=== PATIENT | female | born 1960 | race African-American/Black ===

== ENCOUNTER 2017-02-10 12:38 | Inpatient (IN) | payer MEDICAID ==
[~2017-02-10] VITALS: Ht 165.1 cm; Wt 74.8 kg
[2017-02-10] MEDS ORDERED: LASIX40 MG ORAL (12:43)
[2017-02-10] MEDS ORDERED: CARVEDILOL12.5 MG ORAL (12:43)
[2017-02-10] MEDS ORDERED: ENTRESTO 24 MG1 EACH PO (12:43)
[2017-02-10] MEDS ORDERED: ATORVASTATIN CA20 MG ORAL (12:43)
[2017-02-10 12:48] VITALS: BP 157/90
[2017-02-10 13:10] LABS: BASOPHILS % (AUTO) 0.9 % (0.0-2.0); EOSINOPHILS % (AUTO) 1.9 % (0.0-3.0); MEAN CORPUSCULAR HGB CONC 32.5 G/DL (32.0-36.0); MEAN CORPUSCULAR VOLUME 92 FL (80-99); MONOCYTES % (AUTO) 3.7 % (1.0-10.0); NEUTROPHILS % (AUTO) 71.6 % (45.0-75.0); PLATELET COUNT 186 K/UL (150-450); RED BLOOD COUNT 4.91 M/UL (4.20-5.40); RED CELL DISTRIBUTION WIDTH 12.9 % (11.6-14.8); WHITE BLOOD COUNT 6.6 K/UL (4.8-10.8)
[2017-02-10 13:23] LABS: CALCIUM 9.5 mg/dL (8.6-10.2); CREATININE 1.1 mg/dL (0.5-0.9); GLOMERULAR FILTRATION RATE 51.2 mL/min (>60); POTASSIUM 4.1 mEQ/L (3.4-4.9); TOTAL PROTEIN 7.7 g/dL (6.6-8.7)
[2017-02-10 13:24] LABS: TROPONIN I < 0.30 ng/mL (<=0.30)
--- NOTE | 2017-02-10 13:57 | Diagnostic Imaging Report ---
Indication: PAIN Technique: One view of the chest Comparison: none Findings: The heart is enlarged. Lungs and pleural spaces are clear Impression: Cardiomegaly. No acute process
[2017-02-10 14:28] LABS: APPEARANCE,URINE SLIGHTLY CLOUDY; KETONES,URINE 2+ (NEGATIVE); LEUKOCYTE ESTERASE ,URINE NEGATIVE (NEGATIVE); NITRITE,URINE NEGATIVE (NEGATIVE); PH,URINE 6.5 (4.5-8.0); PROTEIN,URINE 1+ (NEGATIVE); UROBILINOGEN,URINE NORMAL MG/DL (0.0-1.0)
[2017-02-10 14:41] LABS: BACTERIA,URINE OCCASIONAL /HPF; RBC,URINE 0-2 /HPF (0 - 2); SQUAMOUS EPITHELIAL CELL,UR FEW /LPF (NONE/OCC); WBC,URINE 0-2 /HPF (0 - 2)
[2017-02-10 14:44] VITALS: BP 112/69
[2017-02-10] MEDS ORDERED: Miralax 17gm pkt ORAL PRN (15:15)
[2017-02-10] MEDS ORDERED: Diltiazem 25mg/5ml IV PRN (15:15)
[2017-02-10] MEDS ORDERED: Enalaprilat 2.5mg/2ml Inj IV PRN (15:15)
[2017-02-10] MEDS ORDERED: DuoNeb 0.5-3(2.5)mg/3ml neb HHN PRN (15:15)
[2017-02-10] MEDS ORDERED: Ketorolac 30mg Inj IV PRN (15:15)
[2017-02-10] MEDS ORDERED: Morphine Sulfate 2mg/ml Inj IVP PRN (15:15)
--- NOTE | 2017-02-10 15:15 | Emergency Room Report ---
History of Present Illness General Chief Complaint: Dizziness Source: Patient Present Illness HPI 56-year-old female with history of with pmhx of HTN p/w lightheadedness/sob, started while driving. Patient states that she felt extremely warm, and felt short of breath Denies fever, chills, cough, abd pain. Denies trauma. Last stress test was 1 year ago which was negative. Patient has never had a stress test. Patient has never had a cardiac catheterization. Denies smoking, no family history of cardiac disease at a young age. Denies any history of PE DVT, denies any OCP use, malignancy, recent surgeries or immobilization Allergies: Coded Allergies: PENICILLINS (Verified Allergy, Unknown, 02/10/17) Patient History Past Medical History: see triage record Past Surgical History: none Pertinent Family History: none Reviewed Nursing Documentation: PMH: Agreed, PSxH: Agreed Nursing Documentation-PMH Hx Cardiac Problems: Yes Hx Hypertension: Yes Review of Systems All Other Systems: negative except mentioned in HPI Physical Exam Vital Signs Date Time Temp Pulse Resp B/P (MAP) Pulse Ox O2 Delivery O2 Flow Rate FiO2 02/10/17 12:33 97.9 94 16 178/84 98 Room Air Sp02 EP Interpretation: reviewed, normal General Appearance: normal inspection, well appearing, no apparent distress, alert, GCS 15, non-toxic Head: normocephalic, atraumatic Eyes: bilateral eye normal inspection, bilateral eye PERRL, bilateral eye EOMI ENT: normal ENT inspection, normal pharynx, normal voice, moist mucus membranes Neck: normal inspection, full range of motion, supple Respiratory: normal inspection, lungs clear, normal breath sounds, no respiratory distress, no retraction, no wheezing, speaking full sentences, chest symmetrical Cardiovascular #1: normal inspection, regular rate, rhythm, no edema, normal capillary refill Cardiovascular #2: 2+ radial (R), 2+ radial (L) Gastrointestinal: normal inspection, non tender, soft, non-distended, no guarding Musculoskeletal: normal inspection, back normal, normal range of motion, non- tender Neurologic: normal inspection, alert, oriented x3, responsive, motor strength/ tone normal, sensory intact, normal gait, speech normal Psychiatric: normal inspection, judgement/insight normal, memory normal Skin: normal inspection, normal color, no rash, warm/dry, well hydrated, normal turgor Medical Decision Making Diagnostic Impression: Primary Impression: ACS (acute coronary syndrome) Additional Impression: CHF (congestive heart failure) ER Course 56-year-old female presenting with sudden onset shortness of breath generalized lightheadedness DDX: ACS vs. CHF vs. pneumonia vs. gastritis/GERD vs. pneumothorax . Dehydration, electrolyte disturbance, UTI, pneumonia PE on differential however at this time there are other more likely diagnoses. Patient is not tachycardic or hypoxic Plan: IV access, obtain labs including troponin, EKG, CXR ER course: Patient was treated with ASA. 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 Patient was signed out to Dr Mai, who has accepted patient for admission. Please note that this Emergency Department Report was dictated using [employer] radio operator technology software, occasionally this can lead to erroneous entry secondary to interpretation by the dictation equipment. Laboratory Tests Test 02/10/17 12:45 02/10/17 13:20 White Blood Count 6.6 K/UL (4.8-10.8) Red Blood Count 4.91 M/UL (4.20-5.40) Hemoglobin 14.7 G/DL (12.0-16.0) Hematocrit 45.3 % (37.0-47.0) Mean Corpuscular Volume 92 FL (80-99) Mean Corpuscular Hemoglobin 30.0 PG (27.0-31.0) Mean Corpuscular Hemoglobin Concent 32.5 G/DL (32.0-36.0) Red Cell Distribution Width 12.9 % (11.6-14.8) Platelet Count 186 K/UL (150-450) Mean Platelet Volume 11.0 FL (6.5-10.1) H Neutrophils (%) (Auto) 71.6 % (45.0-75.0) Lymphocytes (%) (Auto) 22.0 % (20.0-45.0) Monocytes (%) (Auto) 3.7 % (1.0-10.0) Eosinophils (%) (Auto) 1.9 % (0.0-3.0) Basophils (%) (Auto) 0.9 % (0.0-2.0) Sodium Level 141 mEQ/L (135-145) Potassium Level 4.1 mEQ/L (3.4-4.9) Chloride Level 102 mEQ/L (98-107) Carbon Dioxide Level 24 mEQ/L (20-30) Anion Gap 15 (5-15) Blood Urea Nitrogen 21 mg/dL (7-23) Creatinine 1.1 mg/dL (0.5-0.9) H Estimate Glomerular Filtration Rate 51.2 mL/min (>60) Glucose Level 108 mg/dL (74-106) H Calcium Level 9.5 mg/dL (8.6-10.2) Total Bilirubin 0.7 mg/dL (0.0-1.2) Aspartate Amino Transferase (AST) 24 U/L (5-40) Alanine Aminotransferase (ALT) 14 U/L (3-33) Alkaline Phosphatase 55 U/L (35-104) Total Creatine Kinase 88 U/L (26-140) Creatine Kinase MB 3.0 ng/mL (< 3.8) Creatine Kinase MB Relative Index 3.4 Troponin I < 0.30 ng/mL (<=0.30) Pro-B-Type Natriuretic Peptide 1754 pg/mL (0-125) H Total Protein 7.7 g/dL (6.6-8.7) Albumin 5.2 g/dL (3.5-5.2) Globulin 2.5 g/dL Albumin/Globulin Ratio 2.0 (1.0-2.7) Urine Color Pale yellow Urine Appearance Slightly cloudy Urine pH 6.5 (4.5-8.0) Urine Specific [place] 1.005 (1.005-1.035) Urine Protein 1+ (NEGATIVE) H Urine Glucose (UA) Negative (NEGATIVE) Urine Ketones 2+ (NEGATIVE) H Urine Occult Blood Negative (NEGATIVE) Urine Nitrite Negative (NEGATIVE) Urine Bilirubin Negative (NEGATIVE) Urine Urobilinogen Normal MG/DL (0.0-1.0) Urine Leukocyte Esterase Negative (NEGATIVE) Urine RBC 0-2 /HPF (0 - 2) Urine WBC 0-2 /HPF (0 - 2) Urine Squamous Epithelial Cells Few /LPF (NONE/OCC) Urine Bacteria Occasional /HPF (NONE) EKG Diagnostic Results Rate: normal Rhythm: NSR ST Segments: other ASA given to the pt in ED: Yes - slight LEÓN V2 only,TWI aVL Rhythm Strip Diag. Results EP Interpretation: yes Rate: 68 Rhythm: NSR, no PVC's, no ectopy Chest X-Ray Diagnostic Results Chest X-Ray Diagnostic Results : Chest X-Ray Ordered: Yes # of Views/Limited/Complete: 1 View Indication: Shortness of Breath EP Interpretation: Yes Interpretation: other - cardiomegaly Impression: Other - cardiomegaly Electronically Signed by: Electronically signed by Susan Caba MD Last Vital Signs Date Time Temp Pulse Resp B/P (MAP) Pulse Ox O2 Delivery O2 Flow Rate FiO2 02/10/17 14:44 98.1 68 15 112/69 99 Room Air Disposition: PLACE IN OBSERVATION Condition: Serious Referrals: JERRICA FLORES (PCP) Susan Caba M.D. Feb 10, 2017 15:15
[2017-02-10] MEDS ORDERED: Nitroglycerin Subl 0.4mg tab SL PRN (16:30)
[2017-02-10 18:00] VITALS: BP 153/93
[2017-02-10] MEDS: Heparin 5000 units/ml inj SUBQ SCH (21:00)
[2017-02-10] MEDS: Atorvastatin 20mg tab ORAL SCH (21:00)
[2017-02-10] MEDS: Carvedilol 12.5mg tab ORAL SCH (21:08)
--- NOTE | 2017-02-10 22:06 | History and Physical ---
History of Present Illness General Date patient seen: Feb 10, 2017 Reason for Hospitalization: Dizziness Present Illness HPI 56-year-old female with history of with pmhx of HTN p/w lightheadedness/sob, started while driving. Her cardiac meds/ antihypertensive meds were changed recently. Her SBP was 220 measured by paramedics. Allergies: Coded Allergies: PENICILLINS (Verified Allergy, Unknown, 02/10/17) Medication History Scheduled Atorvastatin Calcium* (Atorvastatin Calcium*), 20 MG ORAL BEDTIME, (Reported) Carvedilol* (Carvedilol*), 12.5 MG ORAL EVERY 12 HOURS, (Reported) Furosemide* (Lasix*), 40 MG ORAL DAILY, (Reported) Sacubitril/Valsartan (Entresto 24 mg-26 mg Tablet), 1 EACH PO BID, (Reported) Patient History Healthcare decision maker N Resuscitation status Full Code Advanced Directive on File No Past Medical/Surgical History Past Medical/Surgical History: (1) HTN (hypertension) Review of Systems All Other Systems: negative except mentioned in HPI Physical Exam General Appearance: WD/WN Lines, tubes and drains: peripheral HEENT: normocephalic, atraumatic Neck: non-tender, normal alignment Respiratory/Chest: chest wall non-tender, lungs clear Abdomen: normal bowel sounds, soft Genitourinary/Rectal: normal genital exam, normal rectal exam Skin Exam: normal pigmentation 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 Last 24 Hour Vital Signs Date Time Temp Pulse Resp B/P (MAP) Pulse Ox O2 Delivery O2 Flow Rate FiO2 02/10/17 21:08 70 149/88 02/10/17 18:00 97.9 69 20 153/93 99 Room Air 02/10/17 17:53 60 02/10/17 15:50 76 17 124/71 100 Room Air 02/10/17 14:44 98.1 68 15 112/69 99 Room Air 02/10/17 12:48 86 18 157/90 99 Room Air 02/10/17 12:33 97.9 94 16 178/84 98 Room Air Intake and Output 02/10/17 02/11/17 19:00 07:00 Intake Total 360 ml Balance 360 ml Intake Oral 360 ml # Voids 1 Laboratory Tests Test 02/10/17 12:45 02/10/17 13:20 White Blood Count 6.6 K/UL (4.8-10.8) Red Blood Count 4.91 M/UL (4.20-5.40) Hemoglobin 14.7 G/DL (12.0-16.0) Hematocrit 45.3 % (37.0-47.0) Mean Corpuscular Volume 92 FL (80-99) Mean Corpuscular Hemoglobin 30.0 PG (27.0-31.0) Mean Corpuscular Hemoglobin Concent 32.5 G/DL (32.0-36.0) Red Cell Distribution Width 12.9 % (11.6-14.8) Platelet Count 186 K/UL (150-450) Mean Platelet Volume 11.0 FL (6.5-10.1) H Neutrophils (%) (Auto) 71.6 % (45.0-75.0) Lymphocytes (%) (Auto) 22.0 % (20.0-45.0) Monocytes (%) (Auto) 3.7 % (1.0-10.0) Eosinophils (%) (Auto) 1.9 % (0.0-3.0) Basophils (%) (Auto) 0.9 % (0.0-2.0) Sodium Level 141 mEQ/L (135-145) Potassium Level 4.1 mEQ/L (3.4-4.9) Chloride Level 102 mEQ/L (98-107) Carbon Dioxide Level 24 mEQ/L (20-30) Anion Gap 15 (5-15) Blood Urea Nitrogen 21 mg/dL (7-23) Creatinine 1.1 mg/dL (0.5-0.9) H Estimat Glomerular Filtration Rate 51.2 mL/min (>60) Glucose Level 108 mg/dL (74-106) H Calcium Level 9.5 mg/dL (8.6-10.2) Total Bilirubin 0.7 mg/dL (0.0-1.2) Aspartate Amino Transf (AST/SGOT) 24 U/L (5-40) Alanine Aminotransferase (ALT/SGPT) 14 U/L (3-33) Alkaline Phosphatase 55 U/L (35-104) Total Creatine Kinase 88 U/L (26-140) Creatine Kinase MB 3.0 ng/mL (< 3.8) Creatine Kinase MB Relative Index 3.4 Troponin I < 0.30 ng/mL (<=0.30) Pro-B-Type Natriuretic Peptide 1754 pg/mL (0-125) H Total Protein 7.7 g/dL (6.6-8.7) Albumin 5.2 g/dL (3.5-5.2) Globulin 2.5 g/dL Albumin/Globulin Ratio 2.0 (1.0-2.7) Urine Color Pale yellow Urine Appearance Slightly cloudy Urine pH 6.5 (4.5-8.0) Urine Specific [place] 1.005 (1.005-1.035) Urine Protein 1+ (NEGATIVE) H Urine Glucose (UA) Negative (NEGATIVE) Urine Ketones 2+ (NEGATIVE) H Urine Occult Blood Negative (NEGATIVE) Urine Nitrite Negative (NEGATIVE) Urine Bilirubin Negative (NEGATIVE) Urine Urobilinogen Normal MG/DL (0.0-1.0) Urine Leukocyte Esterase Negative (NEGATIVE) Urine RBC 0-2 /HPF (0 - 2) Urine WBC 0-2 /HPF (0 - 2) Urine Squamous Epithelial Cells Few /LPF (NONE/OCC) Urine Bacteria Occasional /HPF (NONE) Height (Feet): 5 Height (Inches): 5.00 Weight (Pounds): 165 Medications Current Medications Medications (Trade) Dose Ordered Sig/Talat Route PRN Reason Start Time Stop Time Status Last Admin Dose Admin Acetaminophen (Tylenol) 650 mg Q4H PRN ORAL T>100.5 02/10/17 15:15 03/12/17 15:14 Albuterol/ Ipratropium (DuoNeb 0.5-3(2.5)mg/3ml) 3 ml Q4H PRN HHN Shortness of Breath 02/10/17 15:15 02/15/17 15:14 Aspirin (ASA) 162 mg DAILY ORAL 02/11/17 09:00 03/13/17 08:59 Atorvastatin Calcium (Lipitor) 20 mg BEDTIME ORAL 02/10/17 21:00 03/12/17 20:59 Carvedilol (Coreg) 12.5 mg EVERY 12 HOURS ORAL 02/10/17 21:00 03/12/17 20:59 02/10/17 21:08 Diltiazem HCl (Cardizem) 10 mg EVERY HOUR PRN IV heart rate more than 120 bpm 02/10/17 15:15 03/12/17 15:14 Enalaprilat (Vasotec) 2.5 mg Q6H PRN IV sbp more than 160mmHg 02/10/17 15:15 03/12/17 15:14 Heparin Sodium (Porcine) (Heparin 5000 units/ml) 5,000 units EVERY 12 HOURS SUBQ 02/10/17 21:00 03/12/17 20:59 Morphine Sulfate (Morphine Sulfate) 2 mg Q4H PRN IVP Severe Pain (Pain Scale 7-10) 02/10/17 15:15 02/17/17 15:14 Nitroglycerin (Ntg) 0.4 mg Q5MIN X 3 DOSES PRN SL Prn Chest Pain 02/10/17 16:30 03/12/17 16:29 Ondansetron HCl (Zofran) 4 mg Q6H PRN IVP Nausea & Vomiting 02/10/17 16:30 03/12/17 16:29 Pantoprazole (Protonix) 40 mg DAILY ORAL 02/11/17 09:00 03/13/17 08:59 Polyethylene Glycol (Miralax) 17 gm DAILYPRN PRN ORAL Constipation 02/10/17 15:15 03/12/17 15:14 Temazepam (Restoril) 15 mg HSPRN PRN ORAL Insomnia 02/10/17 21:00 02/17/17 20:59 Assessment/Plan Problem List: (1) Hypertensive emergency ICD Codes: I16.1 - Hypertensive emergency SNOMED: 572856816455346 (2) Pre-syncope ICD Codes: R55 - Syncope and collapse SNOMED: 534226878 Assessment/Plan telemetry monitoring echo adjust cardiac meds cardiology to see. HOPE ALBERT Feb 10, 2017 22:06
[2017-02-11 00:20] VITALS: BP 115/71
[2017-02-11 04:06] VITALS: BP 136/70
[2017-02-11 07:12] LABS: BASOPHILS % (AUTO) 1.3 % (0.0-2.0); EOSINOPHILS % (AUTO) 2.9 % (0.0-3.0); LYMPHOCYTES % (AUTO) 45.4 % (20.0-45.0); MEAN CORPUSCULAR HEMOGLOBIN 30.5 PG (27.0-31.0); MEAN CORPUSCULAR HGB CONC 32.9 G/DL (32.0-36.0); MEAN CORPUSCULAR VOLUME 93 FL (80-99); MEAN PLATELET VOLUME 11.9 FL (6.5-10.1); MONOCYTES % (AUTO) 6.4 % (1.0-10.0); NEUTROPHILS % (AUTO) 44.1 % (45.0-75.0); PLATELET COUNT 163 K/UL (150-450); RED CELL DISTRIBUTION WIDTH 12.9 % (11.6-14.8); WHITE BLOOD COUNT 5.9 K/UL (4.8-10.8)
[2017-02-11 07:36] LABS: TROPONIN I < 0.30 ng/mL (<=0.30)
[2017-02-11 07:41] LABS: CHOLESTEROL 253 mg/dL (< 200); CHOLESTEROL/HDL RATIO 6.5 (3.3-4.4); CRP QUANT < 0.3 mg/dL (< 0.5); HEMOLYSIS 3; LDL CHOLESTEROL (CALC.) 182 mg/dL (60-99)
[2017-02-11 08:21] VITALS: BP 119/57
[2017-02-11] MEDS: Heparin 5000 units/ml inj SUBQ SCH ×2 (09:00→21:00)
[2017-02-11] MEDS: Carvedilol 12.5mg tab ORAL SCH ×2 (09:57→21:00)
[2017-02-11] MEDS: Aspirin Baby 81mg ORAL SCH (09:57)
[2017-02-11 11:44] VITALS: BP 125/67
--- NOTE | 2017-02-11 12:51 | Pulmonology Progress Note ---
Assessment/Plan Problems: (1) Hypertensive emergency (2) Pre-syncope Assessment/Plan bp controlled f/u on echo monitor bp adjust meds episodes of luca Subjective ROS Limited/Unobtainable: No Constitutional: Reports: no symptoms HEENT: Repors: no symptoms Allergies: Coded Allergies: PENICILLINS (Verified Allergy, Unknown, 02/10/17) Objective Last 24 Hour Vital Signs Date Time Temp Pulse Resp B/P (MAP) Pulse Ox O2 Delivery O2 Flow Rate FiO2 02/11/17 11:44 97.0 58 18 125/67 100 Room Air 02/11/17 09:57 60 119/57 02/11/17 08:21 97.7 60 18 119/57 98 Room Air 02/11/17 08:00 63 02/11/17 07:48 60 18 Room Air 21 02/11/17 04:06 97.6 50 20 136/70 96 Room Air 02/11/17 04:00 48 02/11/17 00:20 97.5 59 20 115/71 Room Air 02/11/17 00:00 46 02/10/17 21:08 70 149/88 02/10/17 20:00 61 02/10/17 19:30 64 20 Room Air 21 02/10/17 18:00 97.9 69 20 153/93 99 Room Air 02/10/17 17:53 60 02/10/17 15:50 76 17 124/71 100 Room Air 02/10/17 14:44 98.1 68 15 112/69 99 Room Air Intake and Output 02/11/17 02/12/17 19:00 07:00 Intake Total 480 ml Balance 480 ml Intake Oral 480 ml # Voids 2 General Appearance: WD/WN HEENT: normocephalic, atraumatic Respiratory/Chest: chest wall non-tender, lungs clear Breasts: no masses Cardiovascular: normal peripheral pulses Abdomen: normal bowel sounds, soft, non tender Extremities: no cyanosis Skin: no lesions 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 Laboratory Tests 02/10/17 13:20: Urine Color Pale yellow, Urine Appearance Slightly cloudy, Urine pH 6.5, Urine Specific [place] 1.005, Urine Protein 1+H, Urine Glucose (UA) Negative, Urine Ketones 2+H, Urine Occult Blood Negative, Urine Nitrite Negative, Urine Bilirubin Negative, Urine Urobilinogen Normal, Urine Leukocyte Esterase Negative , Urine RBC 0-2, Urine WBC 0-2, Urine Squamous Epithelial Cells Few, Urine Bacteria Occasional 02/11/17 04:40: White Blood Count 5.9, Red Blood Count 4.20, Hemoglobin 12.8, Hematocrit 38.8, Mean Corpuscular Volume 93, Mean Corpuscular Hemoglobin 30.5, Mean Corpuscular Hemoglobin Concent 32.9, Red Cell Distribution Width 12.9, Platelet Count 163, Mean Platelet Volume 11.9H, Neutrophils (%) (Auto) 44.1L, Lymphocytes (%) (Auto ) 45.4H, Monocytes (%) (Auto) 6.4, Eosinophils (%) (Auto) 2.9, Basophils (%) ( Auto) 1.3, Prothrombin Time 10.0, Prothromb Time International Ratio 1.0, Activated Partial Thromboplast Time 26, Troponin I < 0.30, C-Reactive Protein, Quantitative < 0.3, Triglycerides Level 162H, Cholesterol Level 253H, LDL Cholesterol 182H, HDL Cholesterol 39, Cholesterol/HDL Ratio 6.5H, Thyroid Stimulating Hormone (TSH) 1.960 Current Medications Medications (Trade) Dose Ordered Sig/Talat Route PRN Reason Start Time Stop Time Status Last Admin Dose Admin Acetaminophen (Tylenol) 650 mg Q4H PRN ORAL T>100.5 02/10/17 15:15 03/12/17 15:14 Acetaminophen (Tylenol) 650 mg Q6H PRN ORAL Headache 02/11/17 12:15 03/13/17 12:14 Albuterol/ Ipratropium (DuoNeb 0.5-3(2.5)mg/3ml) 3 ml Q4H PRN HHN Shortness of Breath 02/10/17 15:15 02/15/17 15:14 Aspirin (ASA) 162 mg DAILY ORAL 02/11/17 09:00 03/13/17 08:59 02/11/17 09:57 Atorvastatin Calcium (Lipitor) 20 mg BEDTIME ORAL 02/10/17 21:00 03/12/17 20:59 Carvedilol (Coreg) 12.5 mg EVERY 12 HOURS ORAL 02/10/17 21:00 03/12/17 20:59 02/11/17 09:57 Diltiazem HCl (Cardizem) 10 mg EVERY HOUR PRN IV heart rate more than 120 bpm 02/10/17 15:15 03/12/17 15:14 Enalaprilat (Vasotec) 2.5 mg Q6H PRN IV sbp more than 160mmHg 02/10/17 15:15 03/12/17 15:14 Heparin Sodium (Porcine) (Heparin 5000 units/ml) 5,000 units EVERY 12 HOURS SUBQ 02/10/17 21:00 03/12/17 20:59 Morphine Sulfate (Morphine Sulfate) 2 mg Q4H PRN IVP Severe Pain (Pain Scale 7-10) 02/10/17 15:15 02/17/17 15:14 Nitroglycerin (Ntg) 0.4 mg Q5MIN X 3 DOSES PRN SL Prn Chest Pain 02/10/17 16:30 03/12/17 16:29 Ondansetron HCl (Zofran) 4 mg Q6H PRN IVP Nausea & Vomiting 02/10/17 16:30 03/12/17 16:29 Pantoprazole (Protonix) 40 mg DAILY ORAL 02/11/17 09:00 03/13/17 08:59 Polyethylene Glycol (Miralax) 17 gm DAILYPRN PRN ORAL Constipation 02/10/17 15:15 03/12/17 15:14 Temazepam (Restoril) 15 mg HSPRN PRN ORAL Insomnia 02/10/17 21:00 02/17/17 20:59 HOPE ALBERT Feb 11, 2017 12:51
[2017-02-11] MEDS ORDERED: LORazepam Inj 2mg/ml 1ml IV PRN (15:15)
[2017-02-11] MEDS ORDERED: DuoNeb 0.5-3(2.5)mg/3ml neb HHN PRN (15:15)
[2017-02-11 15:30] VITALS: BP 158/72
--- NOTE | 2017-02-11 16:54 | Cardiology Progress Note ---
Assessment/Plan Assessment/Plan [id number] dizzines sever htn now cotrolled cm chf hs recent swtich to entresto check ortho sta consider neuro evaluation may need to resuem acei for bp control instea of entresto Objective Last 24 Hour Vital Signs Date Time Temp Pulse Resp B/P (MAP) Pulse Ox O2 Delivery O2 Flow Rate FiO2 02/11/17 15:30 96.3 76 18 158/72 100 Room Air 02/11/17 11:44 97.0 58 18 125/67 100 Room Air 02/11/17 09:57 60 119/57 02/11/17 08:21 97.7 60 18 119/57 98 Room Air 02/11/17 08:00 63 02/11/17 07:48 60 18 Room Air 02/11/17 04:06 97.6 50 20 136/70 96 Room Air 02/11/17 04:00 48 02/11/17 00:20 97.5 59 20 115/71 Room Air 02/11/17 00:00 46 02/10/17 21:08 70 149/88 02/10/17 20:00 61 02/10/17 19:30 64 20 Room Air 21 02/10/17 18:00 97.9 69 20 153/93 99 Room Air 02/10/17 17:53 60 Intake and Output 02/11/17 02/12/17 19:00 07:00 Intake Total 480 ml Balance 480 ml Intake Oral 480 ml # Voids 2 Laboratory Tests Test 02/11/17 04:40 White Blood Count 5.9 K/UL (4.8-10.8) Red Blood Count 4.20 M/UL (4.20-5.40) Hemoglobin 12.8 G/DL (12.0-16.0) Hematocrit 38.8 % (37.0-47.0) Mean Corpuscular Volume 93 FL (80-99) Mean Corpuscular Hemoglobin 30.5 PG (27.0-31.0) Mean Corpuscular Hemoglobin Concent 32.9 G/DL (32.0-36.0) Red Cell Distribution Width 12.9 % (11.6-14.8) Platelet Count 163 K/UL (150-450) Mean Platelet Volume 11.9 FL (6.5-10.1) H Neutrophils (%) (Auto) 44.1 % (45.0-75.0) L Lymphocytes (%) (Auto) 45.4 % (20.0-45.0) H Monocytes (%) (Auto) 6.4 % (1.0-10.0) Eosinophils (%) (Auto) 2.9 % (0.0-3.0) Basophils (%) (Auto) 1.3 % (0.0-2.0) Prothrombin Time 10.0 SEC (9.30-11.50) Prothromb Time International Ratio 1.0 (0.9-1.1) Activated Partial Thromboplast Time 26 SEC (23-33) Troponin I < 0.30 ng/mL (<=0.30) C-Reactive Protein, Quantitative < 0.3 mg/dL (< 0.5) Triglycerides Level 162 mg/dL (< 150) H Cholesterol Level 253 mg/dL (< 200) H LDL Cholesterol 182 mg/dL (60-99) H HDL Cholesterol 39 mg/dL (> 60) Cholesterol/HDL Ratio 6.5 (3.3-4.4) H Thyroid Stimulating Hormone (TSH) 1.960 uIU/mL (0.300-4.500) DEREJE WINKLER Feb 11, 2017 16:54
[2017-02-11 20:00] VITALS: BP 130/66
[2017-02-11] MEDS: Atorvastatin 20mg tab ORAL SCH (21:00)
[2017-02-12] VITALS: BP 123/71
[2017-02-12 04:00] VITALS: BP 127/70
--- NOTE | 2017-02-12 05:30 | Consultation ---
DATE OF CONSULTATION: 02/11/2017 CARDIOLOGY CONSULTATION CONSULTING PHYSICIAN: Bola Vera M.D. REFERRING PHYSICIAN: Jennifer Mai M.D. REASON FOR REFERRAL: Hypertension. History Of Present Illness: This is a pleasant 56-year-old female, who has had a history of congestive heart failure and cardiomyopathy, followed by jailer at [facility], who presented to the hospital because of not feeling well. Yesterday, was not feeling good, was feeling dizzy, was feeling like weakness in her legs and felt like she was going to faint. She called the paramedics. Because of her persistent symptoms, paramedics documented a blood pressure of 200s/130s to 140s. The patient states once the paramedics got there, she started feeling more at ease and her blood pressure dropped down to 180 spontaneously without any medication. Documentation from the paramedics indicated blood pressure initially 220/159, subsequently 224/164 and subsequent to that eventually 178/84. She was complaining of dizziness and she thinks a lot of it was her anxiety symptoms. She does have a history of congestive heart failure. Her jailer approximately 6 weeks ago changed her from lisinopril to Entresto because the patient is not liking to take diuretics. Nevertheless, she was evaluated for blood pressures that used to be 110s to 120s, now they are 130s on the Entresto. She has not followed up with the jailer to adjust her medications any further and she presented with these symptoms. She has been admitted to the hospital here at [facility] and she has had blood pressure readings anywhere between 112/69 to 158/72 most recently, but she still feels quite dizzy at the present time and lightheaded. Past Medical History: Positive for high blood pressure and possibly high cholesterol, although that has been apparently told was better. She has congestive heart failure and cardiomyopathy. She denies any diabetes, heart attack, cancer, or stroke. She has had a history of hepatitis as a child. No tuberculosis. She denies any blood clots and she denies any narrowing of vessels. No asthma, emphysema, or ulcers. No kidney problems. No liver problems, thyroid problems, anemia, or arthritis. Social History: She never smoked. She rarely drinks and she has had marijuana use and denies others. Review Of Systems: Gastrointestinal: There was some nausea yesterday and today. Genitourinary: Negative. Pulmonary: Positive for cough. Constitutional: Negative. Neurological: Negative. PHYSICAL EXAMINATION: General: Shows to be middle-aged female, who appears somewhat apprehensive and anxious. Vital Signs: Blood pressure 119/57 to 158/72 with heart rate in the 50 to 76. NECK: Supple. No jugular venous distention. LUNGS: Clear to auscultation and percussion. Cardiac: S1 is normal. S2 is normal. Regular rate and rhythm. No heaves, thrills, gallops, or rubs are noted. ABDOMEN: Soft and nontender. Positive bowel sounds. EXTREMITIES: There is no clubbing, cyanosis, nor edema. NEUROLOGIC: She is awake, alert, and responsive. Laboratory And Diagnostic Data: White count 5.9, hemoglobin 12.8, and platelet count of 163,000. Troponin on two occasions were negative. Sodium 141, potassium 4.1, chloride 102, bicarbonate 24, BUN 21, creatinine 1.1, and glucose of 108. Liver function tests are normal. ProBNP only 1754. Total cholesterol is 253, LDL of 182, triglycerides of 162, and HDL of 39. TSH of 1.96. Coags, INR is 1.0 and a PTT of 26. Urinalysis is fairly unremarkable. Imaging includes a chest x-ray that shows cardiomegaly. The patient had an echocardiogram shows severe global hypokinesis, ejection fraction 20% to 25% with mild mitral regurgitation, grade 2 diastolic relaxation abnormality, and no other significant findings. ASSESSMENT: 1. Hypertension initially uncontrolled, subsequently controlled. 2. Sense of dizziness or lightheadedness. 3. Anxiety. 4. Cardiomyopathy. 5. Obesity. Plan: Dr. Mai, this patient was seen in cardiac consultation. The patient's blood pressure was significantly elevated as documented by the paramedics; however, spontaneously has improved and she is doing much better. All of her medications she used to be on ROBRET inhibitors, but that was discontinued and the patient was switched over to Entresto, which was accomplished by her primary jailer approximately 6 weeks ago. Nevertheless, her blood pressure readings have been a bit higher on the Entresto and even lisinopril, but never as high as when the paramedics were summoned. She still feels that she has some dizziness and orthostatic vitals will be ordered and she should be considered for possibility of a neurological evaluation in light of the fact that she has such a significant elevated blood pressure and she has problems with dizziness, especially if she is not orthostatic. Entresto is on hold for the time being as not available at this hospital. Coreg will be continued and hopefully she will be resumed back on her Entresto, if not then ROBERT inhibitors once her blood pressure stabilized and her symptoms of dizziness have resolved. Bola Vera M.D. DR: VINNY JOB#: [id number] CC:
[2017-02-12 08:00] VITALS: BP 109/68
[2017-02-12 08:09] LABS: TROPONIN I < 0.30 ng/mL (<=0.30)
[2017-02-12] MEDS: Aspirin Baby 81mg ORAL SCH (09:36)
[2017-02-12] MEDS: Carvedilol 12.5mg tab ORAL SCH ×2 (09:42→22:28)
[2017-02-12] MEDS: Heparin 5000 units/ml inj SUBQ SCH ×2 (09:42→22:29)
[2017-02-12 12:00] VITALS: BP 127/83
--- NOTE | 2017-02-12 12:01 | Neurology Progress Note ---
Interim History Interim History ROS Limited/Unobtainable: No Objective Physical Exam Last Vital Signs Date Time Temp Pulse Resp B/P (MAP) Pulse Ox O2 Delivery O2 Flow Rate FiO2 02/12/17 09:42 59 139/98 02/12/17 08:00 97.5 20 97 Room Air 02/12/17 07:40 21 Laboratory Tests Test 02/12/17 07:10 Troponin I < 0.30 ng/mL (<=0.30) Pro-B-Type Natriuretic Peptide 801 pg/mL (0-125) H Impression/Recommendations Problems: (1) Hypertensive emergency (2) Pre-syncope Status: unchanged Recommendations # [id number] MANI ELLIOTT Feb 12, 2017 12:01
--- NOTE | 2017-02-12 12:10 | Pulmonology Progress Note ---
Assessment/Plan Problems: (1) Hypertensive emergency (2) Pre-syncope Assessment/Plan bp controlled f/u on echo monitor bp adjust meds neuro consult appreciated, she might have seizure disorder. EEG ordered by dr Dunlap f/u cardio recommendations. Subjective ROS Limited/Unobtainable: No Constitutional: Reports: no symptoms HEENT: Repors: no symptoms Respiratory: Reports: no symptoms Cardiovascular: Reports: no symptoms Allergies: Coded Allergies: PENICILLINS (Verified Allergy, Unknown, 02/10/17) Objective Last 24 Hour Vital Signs Date Time Temp Pulse Resp B/P (MAP) Pulse Ox O2 Delivery O2 Flow Rate FiO2 02/12/17 09:42 59 139/98 02/12/17 09:00 62 71 89 02/12/17 08:00 66 02/12/17 08:00 97.5 62 20 109/68 97 Room Air 02/12/17 07:40 2 18 Room Air 21 02/12/17 04:56 52 02/12/17 04:00 98.0 62 20 127/70 100 Room Air 02/12/17 00:00 98.2 57 18 123/71 99 Room Air 02/11/17 23:42 56 02/11/17 21:00 57 130/66 02/11/17 20:00 97.5 59 20 130/66 100 Room Air 02/11/17 19:30 53 18 Room Air 21 02/11/17 19:19 61 02/11/17 16:55 58 66 72 02/11/17 16:09 56 02/11/17 15:30 96.3 76 18 158/72 100 Room Air General Appearance: WD/WN HEENT: normocephalic, atraumatic Respiratory/Chest: chest wall non-tender, lungs clear Breasts: no masses Cardiovascular: normal peripheral pulses Abdomen: normal bowel sounds, soft, non tender Genitourinary: normal external genitalia Extremities: no cyanosis, no clubbing Skin: no rash Laboratory Tests 02/12/17 07:10: Troponin I < 0.30, Pro-B-Type Natriuretic Peptide 801H Current Medications Medications (Trade) Dose Ordered Sig/Talat Route PRN Reason Start Time Stop Time Status Last Admin Dose Admin Acetaminophen (Tylenol) 650 mg Q4H PRN ORAL T>100.5 02/10/17 15:15 03/12/17 15:14 Acetaminophen (Tylenol) 650 mg Q6H PRN ORAL Headache 02/11/17 12:15 03/13/17 12:14 02/11/17 12:45 Albuterol/ Ipratropium (DuoNeb 0.5-3(2.5)mg/3ml) 3 ml Q4H PRN HHN Shortness of Breath 02/10/17 15:15 02/15/17 15:14 Aspirin (ASA) 162 mg DAILY ORAL 02/11/17 09:00 03/13/17 08:59 02/12/17 09:36 Atorvastatin Calcium (Lipitor) 20 mg BEDTIME ORAL 02/10/17 21:00 03/12/17 20:59 Carvedilol (Coreg) 12.5 mg EVERY 12 HOURS ORAL 02/10/17 21:00 03/12/17 20:59 02/11/17 09:57 Clonazepam (KlonoPIN) 0.5 mg BEDTIME ORAL 02/12/17 21:00 02/19/17 20:59 Diltiazem HCl (Cardizem) 10 mg EVERY HOUR PRN IV heart rate more than 120 bpm 02/10/17 15:15 03/12/17 15:14 Enalaprilat (Vasotec) 2.5 mg Q6H PRN IV sbp more than 160mmHg 02/10/17 15:15 03/12/17 15:14 Heparin Sodium (Porcine) (Heparin 5000 units/ml) 5,000 units EVERY 12 HOURS SUBQ 02/10/17 21:00 03/12/17 20:59 Lorazepam (Ativan 2mg/ml 1ml) 0.5 mg Q4H PRN IV For Anxiety 02/11/17 15:15 02/18/17 15:14 Morphine Sulfate (Morphine Sulfate) 2 mg Q4H PRN IVP Severe Pain (Pain Scale 7-10) 02/10/17 15:15 02/17/17 15:14 Nitroglycerin (Ntg) 0.4 mg Q5MIN X 3 DOSES PRN SL Prn Chest Pain 02/10/17 16:30 03/12/17 16:29 Ondansetron HCl (Zofran) 4 mg Q6H PRN IVP Nausea & Vomiting 02/10/17 16:30 03/12/17 16:29 Pantoprazole (Protonix) 40 mg DAILY ORAL 02/11/17 09:00 03/13/17 08:59 Polyethylene Glycol (Miralax) 17 gm DAILYPRN PRN ORAL Constipation 02/10/17 15:15 03/12/17 15:14 Temazepam (Restoril) 15 mg HSPRN PRN ORAL Insomnia 02/10/17 21:00 02/17/17 20:59 HOPE ALBERT Feb 12, 2017 12:10
--- NOTE | 2017-02-12 13:12 | Diagnostic Imaging Report ---
Indication: Altered mental status Technique: Continuous helical CT scanning of the head was performed without intravenous contrast material. Axial and coronal 5 mm sections were generated. Radiation dose was minimized using automated exposure control Dose: Total Dose Length Product - DLP [address] Dose Index - CTDIvol(s) 70.38 mGy. Comparison: None Findings: The ventricular system is normal in size and configuration. There is no shift of midline structures. No abnormal extra-axial fluid collections are noted. There is no evidence of intracerebral bleeding. No other abnormal high or low density areas are noted within the brain. The calvarium is intact. Visualized orbits and sinuses are unremarkable Impression: Normal CT scan of the head without contrast material. The CT scanner at [facility] is accredited by the [employer] and the scans are performed using protocols designed to limit radiation exposure to as low as reasonably achievable to attain images of sufficient resolution adequate for diagnostic evaluation.
[2017-02-12 16:00] VITALS: BP 134/95
--- NOTE | 2017-02-12 16:27 | Cardiology Report ---
APPROVED REPORT EKG Measurement Heart [id number] [id number] Sinus bradycardia T wave abnormality, consider lateral ischemia Abnormal ECG
--- NOTE | 2017-02-12 18:19 | Cardiology Progress Note ---
Assessment/Plan Assessment/Plan 1. Hypertension initially uncontrolled, subsequently controlled. 2. Sense of dizziness or lightheadedness. 3. Anxiety. 4. Cardiomyopathy. 5. Obesity. 6. NSVT on questioning nto have class 2-4 prior to start of entresto i do not think entresto appropriate will start on low dose of acei instead d/w pt she has apparently previously declined icd per herself neuro meneses will eventually start on acei but not until neuro meneses is completed tell reviewed labs reviewed Subjective Cardiovascular: Reports: lightheadedness, Denies: chest pain, irregular heart rate Respiratory: Denies: shortness of breath Gastrointestinal/Abdominal: Denies: abdominal pain Genitourinary: Denies: burning Subjective still with dizziness but much better Objective Last 24 Hour Vital Signs Date Time Temp Pulse Resp B/P (MAP) Pulse Ox O2 Delivery O2 Flow Rate FiO2 02/12/17 16:00 97.7 58 18 134/95 99 Room Air 02/12/17 12:00 97.9 53 20 127/83 97 Room Air 02/12/17 11:39 77 02/12/17 09:42 59 139/98 02/12/17 09:00 62 71 89 02/12/17 08:00 66 02/12/17 08:00 97.5 62 20 109/68 97 Room Air 02/12/17 07:40 2 18 Room Air 02/12/17 04:56 52 02/12/17 04:00 98.0 62 20 127/70 100 Room Air 02/12/17 00:00 98.2 57 18 123/71 99 Room Air 02/11/17 23:42 56 02/11/17 21:00 57 130/66 02/11/17 20:00 97.5 59 20 130/66 100 Room Air 02/11/17 19:30 53 18 Room Air 21 02/11/17 19:19 61 General Appearance: no apparent distress, alert Neck: supple Cardiovascular: normal rate, regular rhythm Respiratory/Chest: lungs clear, normal breath sounds Abdomen: normal bowel sounds, non tender, soft Extremities: no swelling Laboratory Tests Test 02/12/17 07:10 Troponin I < 0.30 ng/mL (<=0.30) Pro-B-Type Natriuretic Peptide 801 pg/mL (0-125) H DEREJE WINKLER Feb 12, 2017 18:19
[2017-02-12 20:00] VITALS: BP 142/79
[2017-02-12] MEDS ORDERED: clonazePAM 0.5mg tab ORAL SCH (21:00)
[2017-02-12] MEDS: Atorvastatin 20mg tab ORAL SCH (22:28)
[2017-02-13] VITALS: BP 148/90
--- NOTE | 2017-02-13 | Consultation ---
DATE OF CONSULTATION: 02/12/2017 NEUROLOGICAL CONSULTATION CONSULTING PHYSICIAN: Aditya Prado M.D. REQUESTING PHYSICIAN: Jennifer Mai M.D. History Of Present Illness: This 56-year-old female, seen in neurological consultation to evaluate episodes of "panic attacks." The patient informed me that on the day of event she woke up as usual at 6:30 a.m. 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 She got nauseous, tightness in her body, and she felt like usual panic attacks. She felt like she need to have a bowel movement. Later went home and had a bowel movement, but felt no improvement, developed generalized weakness, felt like legs are buckling up, and she would feel like she is going to pass out. At that time, paramedics were called to the scene. She was brought to emergency room complaining of feeling warm and feeling short of breath. Blood pressure was 178/84 and temperature 97.9. There was no evidence of tachycardia or hypoxia. While in the emergency room, she was treated with aspirin. Laboratory work was obtained revealing a normal CBC study. Normal coagulation panel. Urinalysis with 2+ ketones. Her chemistry panel with creatinine 1.1. BNP 1754. Normal TSH. Elevated LDL at 182 and triglycerides 162. Normal troponin and CRP. Chest x-ray, cardiomegaly, but no acute process noted. According to the documentation from paramedics team, the patient had initial blood pressure of 220/59, fluctuating up to 224/164 although on arrival it dropped to 178/84. Following admission, there was evidence of bradycardia of 48. Blood pressure normalized down to 109/68 and pulse oximetry 100%. The patient informed me that in the last year, she had intermittent episodes of "panic." This usually provoked by exacerbation of congestive heart failure when she has "fluid in my lungs", but more frequently with sensation when she feels that she needs to have a bowel movement. At that point, she will start to get up panicky and feels better after having a bowel movement, her bowel usually well formed. During her panic attacks, she had never lost consciousness and she has no associated symptomatology to suggest seizure activity. The patient admitted being anxious, but panic attacks only when triggered. PAST MEDICAL HISTORY: Hypertension, CHF, and hyperlipidemia. Medications: Her treatment prior to admission included atorvastatin, carvedilol, furosemide, and Crestor. ALLERGIES: Penicillin. 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 No alcohol. No drug abuse. Nonsmoker. Family History: Remarkable that her sister has a very similar attacks. She denies having attacks. Review Of Symptoms: The patient complains of intermittent episodes of "panic" attacks without associated symptomatology. In addition, she has episodes of CHF exacerbation. Occasional headaches while having panic attacks and episodes of shortness of breath. Denies abdominal pain or discomfort. No urine or bowel incontinence. Her sleep was somewhat limited for six hours daily. She is deconditioned, but planning to start exercise and lose weight. PHYSICAL EXAMINATION: General: A well-developed, moderately obese female, not in acute distress. Vital Signs: Now stable. Blood pressure 123/80, respirations 14, and temperature 98.8. HEENT: Head, normocephalic. No evidence of trauma. Eyes, ears, and throat are clear. NECK: Supple. No meningeal signs. Musculoskeletal: Unremarkable. There is no deformities. Peripheral pulses 1+ symmetric. Mental Status: Fully alert and oriented x3 with no evidence of aphasia or apraxia. Cognitive function normal. Emotionally labile at times crying. Cranial Nerve II: Pupils both responding to light and accommodation. Extraocular movement intact. No nystagmus. CRANIAL NERVE V: Normal corneal responses. CRANIAL NERVE VII: No facial asymmetry. CRANIAL NERVE VIII: Normal hearing. CRANIAL NERVE IX THROUGH XII: Within normal limits. Motor Examination: Normal muscle tone. Strength 5/5 in all extremities. No involuntary movement. Deep reflexes 1+ symmetric with downgoing toes on both sides. Sensory Examination: Normal to pinprick and light touch. Gait is stable. IMPRESSION: 1. History of intermittent panic attacks, rule out presyncope, doubt seizure activity. 2. Hypertensive urgency. 3. Obesity. 4. Hyperlipidemia. 5. Cardiomegaly, congestive heart failure. RECOMMENDATION: 1. Course of Klonopin 0.25 mg at bedtime one month. 2. Continue with the present treatment to maintain proper blood pressure control. 3. Keep driving precaution when on Klonopin. 4. Continue with proper hydration. 5. Due to remote risk of seizure activities, I will obtain electroencephalogram and have brain scan baseline. Thank you for allowing me to see this interesting patient in neurological consultation. Aditya Prado M.D. DR: JEIMY JOB#: [id number] CC:
[2017-02-13 04:00] VITALS: BP 149/80
[2017-02-13 08:00] VITALS: BP 136/71
--- NOTE | 2017-02-13 08:53 | Pulmonology Progress Note ---
Assessment/Plan Assessment/Plan ASSESSMENT presyncope HTN urgency -resolved chronic systolic CHF mixed hyperlipidemia cardiomyopathy NSVT PLAN OF CARE tele serial troponin negative ECG no acute ischemic changes, thus ruled out for acute VT lipid panel with elevated TG, TC and LDL. 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 CT head no acute changes CXR no acute cardiopulmonary pathology ECHO with EF 20-25% and RVSP pf 12 cardio follows medical maanegemtn of CHF with BB and later add low dose of ROBERT( as per cardio ) restart Lasix as at home( tarce edema ankle and hand), monitor renal parameters , lytes continue ASA pro BNP trending down declined AICD neuro follows Carotid Duplex EEG neuro doubted seizure activity per neuro started on Klonopin x 1 month at HS with driving precautions while on Klonopin O2 HHN prn GI prophylaxis case discussed and evaluated by supervising physician Subjective Allergies: Coded Allergies: PENICILLINS (Verified Allergy, Unknown, 02/10/17) Subjective denies chest pain, SOB, reports swelling in hands and ankles walked in the hallway, less dizziness Objective Last 24 Hour Vital Signs Date Time Temp Pulse Resp B/P (MAP) Pulse Ox O2 Delivery O2 Flow Rate FiO2 02/13/17 04:00 97.3 66 18 149/80 96 Room Air 02/13/17 03:47 67 02/13/17 00:00 96.6 71 18 148/90 97 Room Air 02/13/17 00:00 65 02/12/17 22:28 56 142/79 02/12/17 20:00 96.8 64 20 142/79 99 Room Air 02/12/17 20:00 67 02/12/17 20:00 60 73 78 02/12/17 19:53 60 16 Room Air 21 02/12/17 16:00 97.7 58 18 134/95 99 Room Air 02/12/17 15:53 61 02/12/17 12:00 97.9 53 20 127/83 97 Room Air 02/12/17 11:39 77 02/12/17 09:42 59 139/98 02/12/17 09:00 62 71 89 General Appearance: no acute distress, other - A/A/O x 3 AA female in NAD HEENT: normocephalic, atraumatic, anicteric, mucous membranes moist Respiratory/Chest: lungs clear, no respiratory distress, no accessory muscle use Cardiovascular: normal peripheral pulses, normal rate, regular rhythm - SR, occ SB in 50 , no JVD Abdomen: normal bowel sounds, soft, non tender, non distended Genitourinary: normal external genitalia Extremities: pedal pulses normal, other - trace ankle and hand edema Neurologic/Psychiatric: no motor/sensory deficits, alert, oriented x 3, responsive Musculoskeletal: normal muscle bulk Current Medications Medications (Trade) Dose Ordered Sig/Talat Route PRN Reason Start Time Stop Time Status Last Admin Dose Admin Acetaminophen (Tylenol) 650 mg Q4H PRN ORAL T>100.5 02/10/17 15:15 03/12/17 15:14 Acetaminophen (Tylenol) 650 mg Q6H PRN ORAL Headache 02/11/17 12:15 03/13/17 12:14 02/11/17 12:45 Albuterol/ Ipratropium (DuoNeb 0.5-3(2.5)mg/3ml) 3 ml Q4H PRN HHN Shortness of Breath 02/10/17 15:15 02/15/17 15:14 Aspirin (ASA) 162 mg DAILY ORAL 02/11/17 09:00 03/13/17 08:59 02/12/17 09:36 Atorvastatin Calcium (Lipitor) 20 mg BEDTIME ORAL 02/10/17 21:00 03/12/17 20:59 Carvedilol (Coreg) 12.5 mg EVERY 12 HOURS ORAL 02/10/17 21:00 03/12/17 20:59 02/11/17 09:57 Clonazepam (KlonoPIN) 0.5 mg BEDTIME ORAL 02/12/17 21:00 02/19/17 20:59 02/12/17 23:41 Diltiazem HCl (Cardizem) 10 mg EVERY HOUR PRN IV heart rate more than 120 bpm 02/10/17 15:15 03/12/17 15:14 Enalaprilat (Vasotec) 2.5 mg Q6H PRN IV sbp more than 160mmHg 02/10/17 15:15 03/12/17 15:14 Heparin Sodium (Porcine) (Heparin 5000 units/ml) 5,000 units EVERY 12 HOURS SUBQ 02/10/17 21:00 03/12/17 20:59 Lorazepam (Ativan 2mg/ml 1ml) 0.5 mg Q4H PRN IV For Anxiety 02/11/17 15:15 02/18/17 15:14 Morphine Sulfate (Morphine Sulfate) 2 mg Q4H PRN IVP Severe Pain (Pain Scale 7-10) 02/10/17 15:15 02/17/17 15:14 Nitroglycerin (Ntg) 0.4 mg Q5MIN X 3 DOSES PRN SL Prn Chest Pain 02/10/17 16:30 03/12/17 16:29 Ondansetron HCl (Zofran) 4 mg Q6H PRN IVP Nausea & Vomiting 02/10/17 16:30 03/12/17 16:29 Pantoprazole (Protonix) 40 mg DAILY ORAL 02/11/17 09:00 03/13/17 08:59 Polyethylene Glycol (Miralax) 17 gm DAILYPRN PRN ORAL Constipation 02/10/17 15:15 03/12/17 15:14 Temazepam (Restoril) 15 mg HSPRN PRN ORAL Insomnia 02/10/17 21:00 02/17/17 20:59 Alfred [facility] Pena NP Feb 13, 2017 08:53
[2017-02-13] MEDS: Heparin 5000 units/ml inj SUBQ SCH ×2 (09:00→09:29)
[2017-02-13] MEDS: Aspirin Baby 81mg ORAL SCH (09:28)
[2017-02-13] MEDS: Carvedilol 12.5mg tab ORAL SCH (09:28)
[2017-02-13] MEDS ORDERED: DuoNeb 0.5-3(2.5)mg/3ml neb HHN PRN (09:30)
[2017-02-13 12:00] VITALS: BP 127/89
--- NOTE | 2017-02-13 13:24 | Neurology Progress Note ---
Interim History Interim History ROS Limited/Unobtainable: No Complaints: ok Events: stable Objective Physical Exam Last Vital Signs Date Time Temp Pulse Resp B/P (MAP) Pulse Ox O2 Delivery O2 Flow Rate FiO2 02/13/17 12:00 60 02/13/17 12:00 97.0 20 127/89 97 Room Air 02/13/17 07:55 21 General: well developed, well nourished Head: normocophalic Neck: no rigidity Neurologic Exam Mental Status: awake, alert, oriented x4, normal cognition, good mathematical skills, normal recent memory, normal remote memory, other - anxious Speech: normal speech, no dysarthia Language: normal language, no aphasia Cranial Nerve II: fundus normal, visual means, no papilledema Cranial Nerves III, IV, : PERRLA, EOMI, pupils Cranial Nerve V: normal facial sensations, temporales function normal, masseters function normal, pterygoids function normal Cranial Nerve VII: no facial asymmetry, normal facial expressions Cranial Nerve VIII: normal hearing, no nystagmus Cranial Nerve IX: normal palate elevation, gag response Cranial Nerve X: no voice hoarseness Cranial Nerve XI: SCM symmetric, trapezii function normal Cranial Nerve XII: tongue midline, no tongue atrophy/fasciculations Motor System: normal muscle tone, strength 5/5, no involuntary movement, no muscle wasting Sensory: normal pinprick, normal light touch, normal position sense, normal graphesthesia Coordination: normal finger to nose bilaterally, normal heel to chu bilaterally, negative Romberg test Deep Tendon Reflexes: 2+ bicep (L), 2+ bicep (R), 2+ tricep (L), 2+ tricep (R) , 2+ brachioradialis (L), 2+ brachioradialis (R), 2+ knee (L), 2+ knee (R), 2+ ankle (L), 2+ ankle (R) Stance: normal Gait: stable, normal regular, heel + toe gait Impression/Recommendations Problems: (1) Pre-syncope (2) Hypertensive emergency (3) Anxiety Status: stable, unchanged Recommendations # [id number] EEG normal neuro stable MANI ELLIOTT Feb 13, 2017 13:24
[2017-02-13] MEDS ORDERED: Furosemide 40mg tab ORAL SCH (13:45)
--- NOTE | 2017-02-13 14:35 | Cardiology Progress Note ---
Assessment/Plan Assessment/Plan 1. Hypertension initially uncontrolled, subsequently controlled. 2. Sense of dizziness or lightheadedness. 3. Anxiety. 4. Cardiomyopathy. 5. Obesity. 6. 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 medical affairs on dc ok to dc form cardiac view point Subjective Cardiovascular: Denies: irregular heart rate, lightheadedness, palpitations Respiratory: Reports: cough, Denies: shortness of breath Genitourinary: Denies: burning Objective Last 24 Hour Vital Signs Date Time Temp Pulse Resp B/P (MAP) Pulse Ox O2 Delivery O2 Flow Rate FiO2 02/13/17 12:00 60 02/13/17 12:00 97.0 75 20 127/89 97 Room Air 02/13/17 09:28 68 136/71 02/13/17 09:00 61 69 82 02/13/17 08:00 70 02/13/17 08:00 97.2 68 19 136/71 98 Room Air 02/13/17 07:55 91 18 Room Air 02/13/17 04:00 97.3 66 18 149/80 96 Room Air 02/13/17 03:47 67 02/13/17 00:00 96.6 71 18 148/90 97 Room Air 02/13/17 00:00 65 02/12/17 22:28 56 142/79 02/12/17 20:00 96.8 64 20 142/79 99 Room Air 02/12/17 20:00 67 02/12/17 20:00 60 73 78 02/12/17 19:53 60 16 Room Air 21 02/12/17 16:00 97.7 58 18 134/95 99 Room Air 02/12/17 15:53 61 General Appearance: no apparent distress, alert Neck: supple Cardiovascular: normal rate, regular rhythm Respiratory/Chest: lungs clear, normal breath sounds Abdomen: normal bowel sounds, non tender, soft Extremities: no swelling Intake and Output 02/13/17 02/14/17 19:00 07:00 # Bowel Movements 1 DEREJE WINKLER Feb 13, 2017 14:35
[2017-02-13 16:00] VITALS: BP 134/77
--- NOTE | 2017-02-13 16:30 | Cardiology Report ---
APPROVED REPORT EXAM: Two-dimensional and M-mode echocardiogram with Doppler and color Doppler. INDICATION LV function M-Mode DIMENSIONS IVSd1.4 (0.7-1.1cm)Left Atrium (MM)4.7 (1.6-4.0cm) LVDd4.9 (3.5-5.6cm)Aortic Root2.9 (2.0-3.7cm) PWd2.1 (0.7-1.1cm)Aortic Cusp Exc.1.7 (1.5-2.0cm) LVDs4.2 (2.5-4.0cm) PWs2.2 cm Left ventricular enlargement. Severe global left ventricular hypokinesis. Left ventricular ejection fraction estimated to be 20-25 %. Increased E point-interventricular septal separation c/w left ventricular dysfunction. Mild left ventricular hypertrophy. Anterior Echo-free space, may be due to pericardial fat or effusion. Mild left atrial enlargement. Right cardiac chamber sizes are within normal limits. Moderate focal aortic valve sclerosis with adequate cusp excursion. Thickened mitral valve leaflets with normal excursion. Mitral annulus and aortic root calcification. Pulmonic valve not well visualized. Normal tricuspid valve structure. IVC at normal size with physiologic collapse. A color flow and spectral Doppler study was performed and revealed: Mild mitral regurgitation. Mitral inflow velocities indicates possible pseudo normalization pattern implying moderately elevated left atrial pressure (Grade II). Trace tricuspid regurgitation. Tricuspid systolic velocities suggests peak right ventricular systolic pressure of 12 mmHg.
[2017-02-13] MEDS ORDERED: LISINOPRIL5 MG ORAL (16:47)
[2017-02-13] MEDS ORDERED: LIPITOR40 MG ORAL (17:09)
--- NOTE | 2017-02-13 22:30 | Electroencephalogram ---
DATE OF PROCEDURE: 02/12/2017 ELECTROENCEPHALOGRAPHY REPORT REFERRING PHYSICIAN: Jennifer Mai M.D. History: This is a [id number] with a history of transient change in level of consciousness suspected to have seizure activities. The patient is treating for hypertension, cardiomegaly, obesity, and dizziness. Her CT of the brain was negative. Treatment include Tylenol and Klonopin. During the recording, the patient described as awake, drowsy, but fairly cooperative. EEG was done using 18 electrodes placed on scalp to scalp, scalp to ear montages according to 10/20 [employer] System. Most wakeful portions of recording consists of low voltage, 8 to 9 cycles per second alpha activities with a frequently override by fast to low voltage beta activities bilaterally. Activation procedure included eye opening and eye closure presenting with normal reactivity. As recording progressed, there was further attenuation of background. Dissolution of alpha activities. No asymmetry from [id number]. No spike or wave activities noted. IMPRESSION: Normal awake stage 1 sleep EEG. Comment: Absence of paroxysmal event on a single recording does not rule out seizure disorder. Aditya Prado M.D. DR: JEIMY JOB#: [id number] CC:
[2017-02-14] MEDS ORDERED: Lisinopril 2.5mg tab ORAL SCH (09:00)
--- NOTE | 2017-02-14 11:13 | Discharge Summary ---
Discharge Summary Hospital Course Date of Admission Feb 10, 2017 at 14:40 Date of Discharge Feb 13, 2017 at 18:00 Admitting Diagnosis acs/lightheadedness HPI Karime Ledezma is a 56 year old female who was admitted on Feb 10, 2017 at 14:40 for Acute Coronary Syndrome,Lightheadedness Hospital Course [id number] Discharge Discharge Disposition Patient was discharged to Home (01) Discharge Diagnoses: Yudy Gavin NP Feb 14, 2017 11:13
--- NOTE | 2017-02-14 12:59 | Diagnostic Imaging Report ---
APPROVED REPORT CPT Code: 62696 Vascular Symptoms Comments: AMS Doppler Spectral Velocity Analysis RightLeft BILATERAL: CCA/BULB - Imaging reveals irregular, minimal plaque (10-20%) in the right and the internal and external carotid arteries. The Doppler spectral flow analysis is within normal limits throughout the internal and external carotid arteries. VERTEBRALS - Imaging reveals both vertebral arteries to be patent, without evidence of stenosis or steal.
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
== END 2017-02-13 18:00 | disposition home or self-care (01) | DRG 199 ==
LOC: EDBD 12:38 → EMR 13:20 → OBSVTOIN 14:40 → 2E 14:40 → EDBEDREQ 15:08 → 2E 02-12 21:41
DX: I16.0 Hypertensive urgency (principal); I42.9 Cardiomyopathy, unspecified; I50.22 Chronic systolic (congestive) heart failure; R55 Syncope and collapse; F41.9 Anxiety disorder, unspecified; E66.9 Obesity, unspecified; Z88.0 Allergy status to penicillin; I34.0 Nonrheumatic mitral (valve) insufficiency; I47.1 Supraventricular tachycardia; E78.5 Hyperlipidemia, unspecified
CPT/HCPCS: 36415; 70450; 71010; 80053; 80061; 81003; 82550; 82553; 83880; 84443; 84484; 85025; 85610; 85730; 86140; 93005; 93306; 93880; 94664; 95819; 99285